=== PATIENT | female | born 1970 | race Caucasian/White ===

== ENCOUNTER 2018-07-21 12:03 | Emergency (ER) | payer BC ==
--- NOTE | 2018-07-21 12:29 | ER Document Report ---
ED Medical Screen (RME) - General Chief Complaint: Skin Sore(s) Stated Complaint: FACIAL/NOSE SWELLING Time Seen by Provider: 07/21/18 12:20 Primary Care Provider: JHONATHAN GREGORY [Primary Care Provider] - Follow up as needed Mode of Arrival: Ambulatory Information source: Patient Notes: 47-year-old female presents with redness to the tip of her nose and right-sided facial swelling. Placed on antibiotics by her primary care physician but advised that if it started to involve the face she should be seen in the emergency department I have greeted and performed a rapid initial assessment of this patient. A comprehensive ED assessment and evaluation of the patient, analysis of test results and completion of medical decision making process we will be contacted by additional ED providers. PHYSICAL EXAMINATION: Vital signs reviewed GENERAL: Well-appearing, well-nourished and in no acute distress. LUNGS: No respiratory distress Musculoskeletal: Normal range of motion NEUROLOGICAL: Normal speech, normal gait. PSYCH: Normal mood, normal affect. SKIN: Noseerythematous, right-sided facial swelling with mild erythema TRAVEL OUTSIDE OF THE [place] IN LAST 30 DAYS: No - HPI Onset: Other Onset/Duration: Gradual, Persistent, Worse Quality of pain: Throbbing Severity: Moderate Similar symptoms previously: No Recently seen / treated by doctor: No - Related Data Smoking: Non-smoker Frequency of alcohol use: None Drug Abuse: None Allergies/Adverse Reactions: No Known Allergies Allergy (Verified 07/21/18 12:05) Past Medical History - Social History Chew tobacco use (# tins/day): No Frequency of alcohol use: None Drug Abuse: None Renal/ Medical History: Denies: Hx Peritoneal Dialysis Past Surgical History: Reports: Hx Orthopedic Surgery - left shoulder ACL, Hx Tonsillectomy - Immunizations Immunizations up to date: Yes Hx Diphtheria, Pertussis, Tetanus Vaccination: Yes Physical Exam - Vital signs Vitals: Temp Pulse Resp BP Pulse Ox 97.9 F 89 20 159/93 H 100 07/21/18 12:08 07/21/18 12:08 07/21/18 12:08 07/21/18 12:08 07/21/18 12:08 Course - Vital Signs Vital signs: Temp Pulse Resp BP Pulse Ox 97.9 F 89 20 159/93 H 100 07/21/18 12:08 07/21/18 12:08 07/21/18 12:08 07/21/18 12:08 07/21/18 12:08 Doctor's Discharge - Discharge Referrals: COLT,NO [Primary Care Provider] - Follow up as needed
[2018-07-21 13:25] LABS: ANION GAP 15 (5-19); BLOOD UREA NITROGEN 9 mg/dL (7-20); CALCIUM 10.3 mg/dL (8.4-10.2); CARBON DIOXIDE 27 mmol/L (22-30); CHLORIDE 97 mmol/L (98-107); GLUCOSE 95 mg/dL (75-110); POTASSIUM 3.9 mmol/L (3.6-5.0); SODIUM 138.6 mmol/L (137-145)
[2018-07-21] MEDS ORDERED: ONDANSETRON HCL INJ/PF 4 MG/2 ML SDV IV ONE (13:40)
[2018-07-21] MEDS ORDERED: MORPHINE SULFATE 10 MG/ML INJ IV ONE (13:40)
[2018-07-21] MEDS ORDERED: KETOROLAC TROMETHAMINE INJ/PF 30 MG/1 ML SDV IV ONE (15:00)
[2018-07-21] MEDS ORDERED: VANCOMYCIN HCL INJ 1000 MG VIAL IV ONE (15:00)
--- NOTE | 2018-07-21 15:03 | ER Document Report ---
ED Skin Rash/Insect Bite/Abscs - General Chief Complaint: Skin Sore(s) Stated Complaint: FACIAL/NOSE SWELLING Time Seen by Provider: 07/21/18 12:20 Primary Care Provider: JHONATHAN GREGORY [NO LOCAL MD] - Follow up as needed Mode of Arrival: Ambulatory Notes: This is a pleasant 47-year-old female in no acute distress to the emergency department for evaluation of a nose infection. Patient has had abscess on the right nose/nostril for the last few days. Was seen by the clinic yesterday. Started on Bactrim and Keflex and received a shot of Rocephin but the pain is gotten worse and the redness began to extend to the right zygomatic area. Patient denies any severe headache. No neck stiffness. No other major issues at this time. No blurred vision. No fever. TRAVEL OUTSIDE OF THE [place] IN LAST 30 DAYS: No - HPI Patient complains to provider of: Tender/swollen area Onset: Yesterday Quality of pain: Throbbing Severity: Moderate Pain Level: 4 - Related Data Allergies/Adverse Reactions: No Known Allergies Allergy (Verified 07/21/18 12:05) Past Medical History - General Information source: Patient - Social History Smoking Status: Never Smoker Chew tobacco use (# tins/day): No Frequency of alcohol use: None Drug Abuse: None Lives with: Spouse/Significant other Family History: None Patient has suicidal ideation: No Patient has homicidal ideation: No Renal/ Medical History: Denies: Hx Peritoneal Dialysis Past Surgical History: Reports: Hx Orthopedic Surgery - left shoulder ACL, Hx Tonsillectomy - Immunizations Immunizations up to date: Yes Hx Diphtheria, Pertussis, Tetanus Vaccination: Yes Review of Systems - Review of Systems Notes: Constitutional: denies: Chills, Diaphoresis, Fever, Malaise, Weakness EENT: denies: Eye discharge, Blurred vision, Tearing, Double vision,. Complaining of swelling and pain to the right nostril Cardiovascular: denies: Palpitations, Heart racing, Orthopnea, Dyspnea, Chest pain Respiratory: denies: Cough, Hurts to breathe, Wheezing, Shortness of breath Gastrointestinal: denies: Abdominal pain, Diarrhea, Nausea, Vomiting, Black stools, bright red blood in stool Genitourinary: denies: Burning, Dysuria, Discharge, Frequency, Flank pain, Hematuria Musculoskeletal: denies: Joint pain, Joint swelling, Muscle pain, Muscle stiffness, back pain Hematologic/Lymphatic: denies: Anemia, Easy bleeding, Easy bruising, Blood clots Neurological/Psychological: denies: Confusion, Dementia, Depression, Loss of consciousness Skin: No lesions, no masses, no skin breakdown, no abscesses Physical Exam - Vital signs Vitals: Temp Pulse Resp BP Pulse Ox 97.9 F 89 20 159/93 H 100 07/21/18 12:08 07/21/18 12:08 07/21/18 12:08 07/21/18 12:08 07/21/18 12:08 Interpretation: Normal - General General appearance: Appears well, Alert - HEENT Head: Normocephalic, Atraumatic Eyes: Normal Pupils: PERRL Notes: Patient has moderate erythema noted to the distal tip of the right nostril with some mild erythema coming off laterally from there to the zygomatic area. It is extremely tender to the touch at the distal tip. Inside of the nasal airway you can see a abscess which is actively draining. - Respiratory Respiratory status: No respiratory distress Chest status: Nontender Breath sounds: Normal Chest palpation: Normal - Cardiovascular Rhythm: Regular Heart sounds: Normal auscultation Murmur: No - Abdominal Inspection: Normal Distension: No distension Bowel sounds: Normal Tenderness: Nontender Organomegaly: No organomegaly - Back Back: Normal, Nontender - Extremities General upper extremity: Normal inspection, Nontender, Normal color, Normal ROM, Normal temperature General lower extremity: Normal inspection, Nontender, Normal color, Normal ROM, Normal temperature, Normal weight bearing. No: Marie's sign - Neurological Neuro grossly intact: Yes Cognition: Normal Orientation: AAOx4 [place] Coma Scale Eye Opening: Spontaneous [place] Coma Scale Verbal: Oriented [place] Coma Scale Motor: Obeys Commands [place] Coma Scale Total: 15 Speech: Normal Motor strength normal: LUE, RUE, LLE, RLE Sensory: Normal - Psychological Associated symptoms: Normal affect, Normal mood - Skin Skin Temperature: Warm Skin Moisture: Dry Skin Color: Normal Course - Re-evaluation Re-evalutation: 07/21/18 16:[address] 07/21/18 12:20 IMPRESSION: 1.5 x 0.7 cm fluid collection at the right nostril, probably corresponding to known abscess. Skin thickening and soft tissue edema at the nose and at the right maxillary region, may be secondary to phlegmonous change / cellulitis. 07/21/18 16:53 Laboratory 07/21/18 07/21/18 12:47 12:47 WBC 9.7 RBC 5.24 Hgb 15.0 Hct 44.2 MCV 84 MCH 28.7 MCHC 34.0 RDW 13.4 Plt Count 338 Seg Neutrophils % 78.7 H Lymphocytes % 15.4 Monocytes % 4.6 Eosinophils % 0.6 Basophils % 0.7 Absolute Neutrophils 7.6 Absolute Lymphocytes 1.5 Absolute Monocytes 0.5 Absolute Eosinophils 0.1 Absolute Basophils 0.1 Sodium 138.6 Potassium 3.9 Chloride 97 L Carbon Dioxide 27 Anion Gap 15 BUN 9 Creatinine 0.84 Est GFR ( Amer) > 60 Est GFR (Non-Af Amer) > 60 Glucose 95 Calcium 10.3 H Patient has a isolated distal nostril abscess. Currently on antibiotics. Single dose of vancomycin given with some Toradol. I think at this time she should continue with her Bactrim and Keflex as already prescribed. I will had some mupirocin ointment. Patient advised to return if redness to the face is getting worse as she may require admission. Patient would like to try to go home at this time. Will discharge at this time in stable condition. Of note, I did attempt to page ENT special education case manager but never received a call back but honestly I do not think patient needs to be seen by ENT anyway at this time. I will give her ENT follow-up however. - Vital Signs Vital signs: Temp Pulse Resp BP Pulse Ox 97.9 F 89 20 159/93 H 100 07/21/18 12:08 07/21/18 12:08 07/21/18 12:08 07/21/18 12:08 07/21/18 12:08 - Laboratory Result Diagrams: 07/21/18 12:47 07/21/18 12:47 Laboratory results interpreted by me: 07/21/18 07/21/18 12:47 12:47 Seg Neutrophils % 78.7 H Chloride 97 L Calcium 10.3 H Discharge - Discharge Clinical Impression: Nasal abscess Condition: Good Disposition: HOME, SELF-CARE Instructions: Abscess ([facility]), Cephalexin ([facility]), Trimethoprim-Sulfa ([facility]) Additional Instructions: Please follow-up with ENT as this may require further intervention. In the hui nt that this is getting worse over the next 24 hours return for repeat evaluation. IV antibiotics may be required in order to completely eradicate this infection. In the event that you develop severe headache, confusion, high fevers, worsening pain, worsening redness or swelling please do not hesitate to be re-seen and reevaluated Prescriptions: Hydrocodone/Acetaminophen [[place] 5-325 mg Tablet] 1 tab PO TID PRN 3 Days #9 tablet PRN Reason: For Breakthrough Pain Mupirocin [Bactroban 2% Ointment 22 gm] 1 applic TP TID 10 Days #1 tube Referrals: DAMIEN BENTON DO [ASSOCIATE] - 07/23/18
--- NOTE | 2018-07-21 15:07 | RADIOLOGY REPORT (SQ) ---
EXAM DESCRIPTION: CT FACIAL AREA WITH COMPLETED DATE/TIME: 07/21/2018 2:42 pm REASON FOR STUDY: Abscess of nose with spreading to right face COMPARISON: None. TECHNIQUE: Post contrast images through the facial bones and orbits windowed for bone and soft tissu e. Additional coronal and sagittal reconstructed images reviewed. All images stored on PACS. All CT scanners at this facility use dose modulation, iterative reconstruction, and/or weight based d osing when appropriate to reduce radiation dose to as low as reasonably achievable (ALARA). [facility]: Dose Right [facility]: CareDose [facility]: Dose Right [facility]: Teradose 4D [facility]: [employer] CONTRAST TYPE AND DOSE: contrast/concentration: Isovue 350.00 mg/ml; Total Contrast Delivered: 50.0 ml; Total Saline Delivered: 50.0 ml RENAL FUNCTION: Creatinine 0.84 RADIATION DOSE: CT Rad equipment meets quality standard of care and radiation dose reduction techniq ues were employed. CTDIvol: 30.4 mGy. DLP: 570 mGy-cm. . LIMITATIONS: None. FINDINGS: FACIAL BONES: No acute fracture. ORBITS: Intact. No fracture. Symmetric intact globes and retroorbital soft tissues. PARANASAL SINUSES: No air-fluid levels. Maxillary sinus outlets are patent. SOFT TISSUES: There is a 1.5 x 0.7 cm fluid collection at the right nostril, probably corresponding t o known abscess. There is skin thickening and soft tissue edema at the nose and at the right maxilla ry region. INFERIOR BRAIN: Limited view. No acute findings. IMPRESSION: 1.5 x 0.7 cm fluid collection at the right nostril, probably corresponding to known absc ess. Skin thickening and soft tissue edema at the nose and at the right maxillary region, may be sec ondary to phlegmonous change / cellulitis. TECHNICAL DOCUMENTATION: JOB ID: [id number] [place]- Quality ID # 436: Final reports with documentation of one or more dose reduction techniques (e.g., Au tomated exposure control, adjustment of the mA and/or kV according to patient size, use of iterative reconstruction technique) 2010 [employer]- All Rights Reserved Reading location - IP/workstation name: [email or web address]
[2018-07-21 16:04] LABS: ABSOLUTE BASOPHILS # (AUTO) 0.1 10^3/uL (0.0-0.2); ABSOLUTE EOSINOPHILS # (AUTO) 0.1 10^3/uL (0.0-0.6); ABSOLUTE LYMPHOCYTES (AUTO) 1.5 10^3/uL (0.5-4.7); ABSOLUTE MONOCYTES (AUTO) 0.5 10^3/uL (0.1-1.4); ABSOLUTE NEUT (AUTO) 7.6 10^3/uL (1.7-8.2); BASOPHILS % (AUTO) 0.7 % (0-2); EOSINOPHILS % (AUTO) 0.6 % (0-6); HEMATOCRIT 44.2 % (36.0-47.0); LYMPHOCYTES % (AUTO) 15.4 % (13-45); MEAN CORPUSCULAR HEMOGLOBIN 28.7 pg (27.0-33.4); MEAN CORPUSCULAR VOLUME 84 fl (80-97); MONOCYTES % (AUTO) 4.6 % (3-13); PLATELET COUNT 338 10^3/uL (150-450); RED BLOOD COUNT 5.24 10^6/uL (3.72-5.28); RED CELL DISTRIBUTION WIDTH 13.4 % (11.5-14.0); SEGMENTED NEUTROPHILS % (AUTO) 78.7 % (42-78); TOTAL CELLS COUNTED % (AUTO) 100 %; WHITE BLOOD COUNT 9.7 10^3/uL (4.0-10.5)
[2018-07-21] MEDS ORDERED: HYDROCODONE/ACETAMINOPHEN 5-325 MG (6 TAB/ER DISP) PO PRN (17:08)
[2018-07-21 17:22] VITALS: BP 118/77
[2018-07-21] MEDS ORDERED: BUSPIRONE HCL 10 MG TABLET PO SCH (18:00)
[2018-07-21] MEDS ORDERED: DIVALPROEX SODIUM 250 MG TABLET.DR PO SCH (18:00)
== END 2018-07-21 17:22 | disposition home or self-care (01) ==
LOC: ER 12:03
DX: J34.0 Abscess, furuncle and carbuncle of nose (principal)
CPT/HCPCS: 36415; 87070; 87205; 85025; 87077; 80048; 87186; 70487; J1885; J2270; J2405; J3370